=== PATIENT | female | born 1995 | race Caucasian/White ===

== ENCOUNTER 2019-11-30 14:45 | Emergency (ER) | payer BC, MEDICAID, SELFPAY ==
[2019-11-30 14:52] VITALS: BP 119/57; PULSE 86; RESP 16; TEMP 36.7; O2SAT 98; BMI 26.5
== END 2019-11-30 17:05 | disposition left against medical advice (07) ==
LOC: ER 14:52
PROVIDERS: Emergency Provider Physician Assistant; Family Provider Nurse Practitioner Family; PCP Nurse Practitioner Family
DX: Z53.21 Procedure and treatment not carried out due to patient leaving prior to being seen by health care provider (principal)
CPT/HCPCS: 99281; A9270

== ENCOUNTER 2020-01-06 23:20 | Emergency (ER) | payer BC, MEDICAID, SELFPAY ==
[2020-01-06 23:41] VITALS: BP 131/76; PULSE 92; RESP 18; TEMP 36.7; O2SAT 96; BMI 30.9
--- NOTE | 2020-01-06 23:50 | W.ED.GENADLT ---
HPI - General Adult General: Chief complaint: General Medical Stated complaint: itchy throat Time Seen by Provider: 01/06/20 23:38 History of Present Illness: HPI narrative: Scratchy throat complaint: Sore throat Onset (ago): hour(s) Associated symptoms: Reports no associated symptoms; Deny chest pain, dyspnea, headache(s), nausea, rash or vomiting Review of Systems Const: Denies: fever, chills or body aches Eyes: Denies: change in vision or blurry vision ENMT: Denies: throat pain (Scratchy throat) or nasal congestion Card: Denies: chest pain or shortness of breath on exertion Resp: Denies: shortness of breath, productive cough or non-productive cough GI: Denies: abdominal pain, nausea or vomiting Musc: Denies: extremity pain Skin/Breast: Denies: rash Neuro: Denies: headache Psych: Denies: anxiety or depression Matthew/Lymph: Denies: easy bruising PFSH ED PFSH: Social History Smoking and tobacco status: current every day smoker Female Reproductive History: Date of last menstrual period: 11/15/19 Physical Exam Const: COMMON NORMALS: no apparent distress, average body habitus and oriented x3 HENMT: COMMON NORMALS: normocephalic HEAD & SCALP: normal to inspection and normocephalic FACE & SINUS: normal facial exam Eye: COMMON NORMALS: conjunctivae normal GENERAL EYE: normal appearance of both eyes CONJUNCTIVA: Yes conjunctivae normal Neck/C-Spine: COMMON NORMALS: no JVD Chest: COMMONS NORMALS: inspection of chest normal Resp: COMMON NORMALS: normal respiratory effort and clear to auscultation bilaterally AUSCULTATION: clear to auscultation bilaterally Cardio: COMMON NORMALS: no JVD, regular rate and regular rhythm RATE: regular rate RHYTHM: regular rhythm GI: COMMON NORMALS: normal to inspection, nondistended, normoactive bowel sounds Extremity: COMMON NORMALS: normal to inspection and full ROM Neuro: COMMON NORMALS: oriented x3 Course Vital Signs: Vital signs: Vital Signs Temperature 98.0 F 01/06/20 23:41 Pulse Rate 92 01/06/20 23:41 Respiratory Rate 18 01/06/20 23:41 Blood Pressure 131/76 01/06/20 23:41 Pulse Oximetry 96 01/06/20 23:41 Discharge Plan Discharge Prescriptions: No Action No Known Home Medications RF: 0 Coding Level of Care Code ED [employer] S[employer] for [employer] Cam[employer]
--- NOTE | 2020-01-06 23:58 | PC.NURSE ---
PATIENT STATES THAT SHE AND HER SON HAVE BEEN SICK SINCE YESTERDAY. PATIENT STATES THAT SHE HAS BEEN HAVING COUGHING, ITCHY THROAT, AND HAS BEEN HAVING TO USE HER INHALER. PATIENT STATES NOTHING IS MAKING HER SYMPTOMS BETTER.
[2020-01-07] VITALS: BP 114/76; PULSE 93; RESP 16; O2SAT 91
[2020-01-07 00:03] LABS: Rapid Strep A Test Negative (Negative)
[2020-01-07 00:21] LABS: Influenza A by IFA Negative (Negative); Influenza B by IFA Negative (Negative)
[2020-01-07 00:44] VITALS: BP 116/64; PULSE 93; RESP 16; O2SAT 91
== END 2020-01-07 00:46 | disposition home or self-care (01) ==
PROVIDERS: Emergency Provider Nurse Practitioner Family; Family Provider Nurse Practitioner Family; PCP Nurse Practitioner Family
DX: J02.9 Acute pharyngitis, unspecified (principal); F17.200 Nicotine dependence, unspecified, uncomplicated
CPT/HCPCS: 87081; 87804; 87880; 99281; 99282

== ENCOUNTER → 2020-07-18 15:57 | Outpatient (BNVA) | payer MEDICAID, SELFPAY | PROVIDERS: Family Provider Nurse Practitioner Family; PCP Nurse Practitioner Family; Visit Provider Nurse Practitioner | DX: N39.0 Urinary tract infection, site not specified (principal); Z68.30 Body mass index [BMI] 30.0-30.9, adult; F17.210 Nicotine dependence, cigarettes, uncomplicated; Z71.89 Other specified counseling; M54.9 Dorsalgia, unspecified | CPT/HCPCS: 81000 ==

== ENCOUNTER → 2020-09-08 18:17 | Outpatient (BNVA) | payer MEDICAID, SELFPAY | PROVIDERS: Family Provider Nurse Practitioner Family; PCP Nurse Practitioner Family; Visit Provider Nurse Practitioner Family | DX: N39.0 Urinary tract infection, site not specified (principal) | CPT/HCPCS: 81000; 81025 ==

== ENCOUNTER → 2022-05-31 10:34 | Outpatient (BNVA) | payer MEDICAID, SELFPAY | PROVIDERS: Family Provider Nurse Practitioner Family; Visit Provider Family Medicine | DX: B34.9 Viral infection, unspecified (principal); R11.2 Nausea with vomiting, unspecified | CPT/HCPCS: 87635 ==

== ENCOUNTER → 2022-10-27 09:30 | Outpatient (BNVA) | payer MEDICAID, SELFPAY | PROVIDERS: Family Provider Nurse Practitioner Family; Visit Provider Obstetrics & Gynecology | DX: N92.6 Irregular menstruation, unspecified (principal) | CPT/HCPCS: 83036; 83525; 84443 ==

== ENCOUNTER → 2023-01-26 08:16 | Outpatient (BNVA) | payer MEDICAID, SELFPAY | PROVIDERS: Family Provider Nurse Practitioner Family; Visit Provider Obstetrics & Gynecology | DX: N97.9 Female infertility, unspecified (principal); N94.6 Dysmenorrhea, unspecified | CPT/HCPCS: 83525 ==